=== PATIENT | female | born 1995 | race Hispanic/Latino ===

== ENCOUNTER 2018-02-24 14:09 | Emergency (ER) | payer SELFPAY ==
[2018-02-24 14:28] LABS: Bilirubin Negative (Negative); Blood, Urine Negative (Negative); Clarity CLEAR (Clear); Glucose, Urine (Dipstick) >=1000 mg/dL (Negative); Leukocyte Negative (Negative); Nitrite Negative (Negative); Protein, Urine (Dipstick) Negative (Neg-Trace); Specific Gravity, Urine 1.008 (1.002-1.036); Urobilinogen 0.2 mg/dL (0.2-1.0); pH, Urine 6.5 (5.0-9.0)
[2018-02-24 14:29] LABS: Pregnancy Test - Urine (BHCG) Negative (Negative)
[2018-02-24 14:30] LABS: Pregu Control Background? CLEAR/WHITE (CLR/WHITE); Pregu Control Bar Appear? YES (CONTROL BAR); Specific Gravity 1.008 (1.002-1.036)
[2018-02-24 14:40] LABS: #Basophils 0.1 thou/uL (0.0-0.2); #Eosinphils 0.1 thou/uL (0.0-0.7); #Lymphocytes 3.2 thou/uL (1.20-3.40); #Monocytes 0.6 thou/uL (0.11-0.59); #Neutrophils 4.1 thou/uL (1.40-6.50); %Basophils 0.7 % (0.0-1.0); %Eosinophils 1.1 % (0.0-10.0); %Lymphocytes 39.6 % (21.0-51.0); %Monocytes 7.8 % (0.0-10.0); %Neutrophils 50.8 % (42.0-75.0); Hemoglobin 16.3 g/dL (12.0-16.0); Mean Corpuscular Hemoglobin 29.6 pg (27.0-31.0); Mean Corpuscular Volume 84.6 fL (78.0-98.0); Mean Platelet Volume 7.7 fL (7.4-10.4); Platelet Count 335 thou/uL (130-400); RBC Distribution Width 12.3 % (11.5-14.5); White Blood Cell (WBC) Count 8.1 thou/uL (4.8-10.8)
[2018-02-24 16:31] LABS: ALT (SGPT) 70 U/L (8-55); AST (SGOT) 40 U/L (5-34); Albumin 4.4 g/dL (3.5-5.0); Alkaline Phosphatase 107 U/L (40-150); Anion Gap 14 mmol/L (10-20); BUN (Urea Nitrogen) 7 mg/dL (7.0-18.7); Bilirubin, Total 0.4 mg/dL (0.2-1.2); Calc. Creatinine Clearance 0 mL/min (70-130); Calcium 9.5 mg/dL (7.8-10.44); Carbon Dioxide 25 mmol/L (22-29); Chloride 100 mmol/L (98-107); Estimated GFR-MDRD Greater than 90; Globulin 3.5 g/dL (2.4-3.5); Glucose 289 mg/dL (70-105); Potassium 3.8 mmol/L (3.5-5.1); Protein, Total 7.9 g/dL (6.0-8.3); Sodium 135 mmol/L (136-145)
[2018-02-24] MEDS ORDERED: cefTRIAXone\\ROCEPHIN 250 MG VIAL ONE (17:12)
[2018-02-24] MEDS ORDERED: Lidocaine 1% (PF) 30 ML VIAL ONE (17:13)
[2018-02-25 22:45] LABS: Chlamydia by PCR Not Detected (NotDetected); GC by PCR Not Detected (NotDetected)
== END 2018-02-24 17:40 | disposition home or self-care (01) ==
LOC: ERS 14:09
DX: R10.2 Pelvic and perineal pain (principal); I10 Essential (primary) hypertension; R73.9 Hyperglycemia, unspecified
CPT/HCPCS: 36415; 80053; 81003; 81025; 84702; 85025; 87480; 87491; 87510; 87591; 87660; 96372; J0696; J2001

== ENCOUNTER 2018-06-27 13:42 | Emergency (ER) | payer MEDICAID, SELFPAY ==
[2018-06-27] MEDS ORDERED: Ketorolac Tromethamine 30 MG/ML VIAL ONE (15:17)
[2018-06-27] MEDS ORDERED: Clindamycin/D5W 900 mg/50 ml Premix Bag ONE (15:17)
[2018-06-27 15:55] LABS: #Lymphocytes 2.8 thou/uL (1.20-3.40); #Monocytes 1.1 thou/uL (0.11-0.59); #Neutrophils 15.6 thou/uL (1.40-6.50); %Basophils 0.2 % (0.0-1.0); %Eosinophils 0.1 % (0.0-10.0); %Lymphocytes 14.2 % (21.0-51.0); %Monocytes 5.8 % (0.0-10.0); %Neutrophils 79.7 % (42.0-75.0); Hemoglobin 14.9 g/dL (12.0-16.0); Mean Corpuscular HGB CONC 34.5 g/dL (32.0-36.0); Mean Corpuscular Hemoglobin 28.7 pg (27.0-31.0); Mean Corpuscular Volume 83.1 fL (78.0-98.0); Mean Platelet Volume 8.2 fL (7.4-10.4); Platelet Count 345 thou/uL (130-400); RBC Distribution Width 12.1 % (11.5-14.5); White Blood Cell (WBC) Count 19.6 thou/uL (4.8-10.8)
[2018-06-27 16:21] LABS: ALT (SGPT) 21 U/L (8-55); AST (SGOT) 11 U/L (5-34); Albumin 3.9 g/dL (3.5-5.0); Alkaline Phosphatase 94 U/L (40-150); Anion Gap 15 mmol/L (10-20); BUN (Urea Nitrogen) 5 mg/dL (7.0-18.7); Bilirubin, Total 0.9 mg/dL (0.2-1.2); Calc. Creatinine Clearance 0 mL/min (70-130); Calcium 9.4 mg/dL (7.8-10.44); Carbon Dioxide 23 mmol/L (22-29); Chloride 98 mmol/L (98-107); Estimated GFR-MDRD Greater than 90; Globulin 3.7 g/dL (2.4-3.5); Glucose 234 mg/dL (70-105); Potassium 3.6 mmol/L (3.5-5.1); Protein, Total 7.6 g/dL (6.0-8.3); Sodium 132 mmol/L (136-145)
== END 2018-06-27 19:12 | disposition home or self-care (01) ==
LOC: ERS 13:42
DX: L02.414 Cutaneous abscess of left upper limb (principal)
CPT/HCPCS: 10061; 36415; 80053; 85025; 87040; 96365; 96366; 96367; 96375; J1885; J3370; J3490

== ENCOUNTER 2018-06-29 18:49 | Emergency (ER) | payer SELFPAY ==
[2018-06-29] MEDS ORDERED: Lidocaine 1% w/Epinephrine 1:100K 20 ML VIAL ONE (19:44)
== END 2018-06-29 20:32 | disposition home or self-care (01) ==
LOC: ERS 18:49
DX: L02.412 Cutaneous abscess of left axilla (principal); Z79.899 Other long term (current) drug therapy
CPT/HCPCS: 10061; J2001

== ENCOUNTER 2018-08-17 06:38 | Emergency (ER) | payer SELFPAY ==
[2018-08-17 07:00] LABS: Bilirubin Negative (Negative); Blood, Urine Negative (Negative); Clarity CLEAR (Clear); Glucose, Urine (Dipstick) >=1000 mg/dL (Negative); Leukocyte Negative (Negative); Nitrite Negative (Negative); Protein, Urine (Dipstick) Negative (Neg-Trace); Specific Gravity, Urine 1.031 (1.002-1.036); Urobilinogen 0.2 mg/dL (0.2-1.0)
[2018-08-17 07:05] LABS: Pregnancy Test - Urine (BHCG) POSITIVE (Negative)
[2018-08-17 07:06] LABS: Pregu Control Background? CLEAR/WHITE (CLR/WHITE); Pregu Control Bar Appear? YES (CONTROL BAR); Specific Gravity 1.031 (1.002-1.036)
[2018-08-17 07:42] LABS: #Eosinphils 0.1 thou/uL (0.0-0.7); #Lymphocytes 2.6 thou/uL (1.20-3.40); #Monocytes 0.6 thou/uL (0.11-0.59); #Neutrophils 6.7 thou/uL (1.40-6.50); %Basophils 0.4 % (0.0-1.0); %Eosinophils 1.3 % (0.0-10.0); %Lymphocytes 25.8 % (21.0-51.0); %Monocytes 6.3 % (0.0-10.0); %Neutrophils 66.1 % (42.0-75.0); Hemoglobin 15.1 g/dL (12.0-16.0); Mean Corpuscular HGB CONC 34.7 g/dL (32.0-36.0); Mean Corpuscular Hemoglobin 29.2 pg (27.0-31.0); Mean Corpuscular Volume 84.3 fL (78.0-98.0); Platelet Count 342 thou/uL (130-400); RBC Distribution Width 12.6 % (11.5-14.5); Red Blood Cell (RBC) Count 5.18 mill/uL (4.20-5.40); White Blood Cell (WBC) Count 10.1 thou/uL (4.8-10.8)
[2018-08-17] MEDS ORDERED: Ondansetron ODT 4 MG TAB ONE (09:06)
--- NOTE | 2018-08-17 10:34 | ULT ---
ULTRASOUND PELVIC TRANSVAGINAL: Date: 08/17/18 HISTORY: and vaginal bleeding. COMPARISON: None. FINDINGS: Real-time Cantu scale with color Doppler and spectral analysis of the pelvis was performed via transab dominal and transvaginal approach. The patient's HCG level is 2557. Uterus measures 9.0 x 4.6 x 5.0 c m. Right ovary measures 2.0 x 2.3 x 1.5 cm. Left ovary measures 3.3 x 1.3 x 2.3 cm. Adequate vascular flow to both ovaries. There is what appears to be a gestational sac within the uterine fundus. Possible small pole is appreciated, although there are no heart tones yet appreciated The mean sac diameter is 0.74 cm. IMPRESSION: Intrauterine gestational sac with possible small pole. This may reflect an early intrauterine p regnancy. Close follow-up HCG and ultrasound recommended. POS: [facility]
[2018-08-21 19:14] LABS: Chlamydia by PCR Not Detected (NotDetected); GC by PCR Not Detected (NotDetected)
== END 2018-08-17 10:35 | disposition home or self-care (01) ==
LOC: ERS 06:38
DX: O20.9 Hemorrhage in early pregnancy, unspecified (principal); Z3A.01 Less than 8 weeks gestation of pregnancy
CPT/HCPCS: 36415; 76856; 81003; 81025; 84702; 85025; 86900; 86901; 87086; 87480; 87491; 87510; 87591; 87660; Q0162

== ENCOUNTER 2018-08-22 15:30 | Emergency (ER) | payer SELFPAY ==
[2018-08-22] MEDS ORDERED: HYDROcodone/Acetaminophen 5/325 mg Tablet ONE (16:33)
[2018-08-22 16:45] LABS: #Eosinphils 0.1 thou/uL (0.0-0.7); #Lymphocytes 2.6 thou/uL (1.20-3.40); #Monocytes 0.5 thou/uL (0.11-0.59); #Neutrophils 4.4 thou/uL (1.40-6.50); %Basophils 0.6 % (0.0-1.0); %Eosinophils 0.7 % (0.0-10.0); %Lymphocytes 34.7 % (21.0-51.0); %Monocytes 6.6 % (0.0-10.0); %Neutrophils 57.4 % (42.0-75.0); Hemoglobin 15.1 g/dL (12.0-16.0); Mean Corpuscular HGB CONC 34.6 g/dL (32.0-36.0); Mean Corpuscular Volume 83.8 fL (78.0-98.0); Mean Platelet Volume 7.6 fL (7.4-10.4); Platelet Count 343 thou/uL (130-400); RBC Distribution Width 12.3 % (11.5-14.5); Red Blood Cell (RBC) Count 5.21 mill/uL (4.20-5.40); White Blood Cell (WBC) Count 7.6 thou/uL (4.8-10.8)
--- NOTE | 2018-08-22 19:26 | ULT ---
OB ULTRASOUND 08/22/18 PROVIDED CLINICAL HISTORY: Vaginal bleeding and abdominal pain. FINDINGS: Comparison 08/17/18. Single live intrauterine gestation is documented with a crown-rump length corresponding to a 6 week, 1 day gestation. heart rate of 124 beats per minute is documented. There is no evidence for per igestational hemorrhage. Right and left ovaries appear unremarkable. No evidence for free pelvic flui d. Color doppler and spectral analysis of the ovarian waveforms demonstrate normal flow bilaterally. IMPRESSION: Single live intrauterine gestation, 6 weeks, 1 day by crown-rump length. + POS: [facility]
== END 2018-08-22 19:02 | disposition home or self-care (01) ==
LOC: ERS 15:30
DX: O20.0 Threatened abortion (principal); Z3A.01 Less than 8 weeks gestation of pregnancy
CPT/HCPCS: 36415; 76856; 84702; 85025

== ENCOUNTER 2018-09-18 11:21 | Emergency (ER) | payer OTHER, SELFPAY ==
[2018-09-18 11:57] LABS: Bilirubin Negative (Negative); Blood, Urine Large (Negative); Clarity CLEAR (Clear); Glucose, Urine (Dipstick) >=1000 mg/dL (Negative); Leukocyte Negative (Negative); Nitrite Negative (Negative); Protein, Urine (Dipstick) 100 mg/dL (Neg-Trace); Specific Gravity, Urine 1.035 (1.002-1.036); Urobilinogen 0.2 mg/dL (0.2-1.0); pH, Urine 6.5 (5.0-9.0)
[2018-09-18 12:02] LABS: Bacteria/HPF None Seen HPF (None Seen); Hyaline Casts/LPF 0-3 HYALINE CAST LPF (0-3 Hyaline); Pathc Cast-AUWi Flag 0.87 (0-2.49); Pregnancy Test - Urine (BHCG) Negative (Negative); Pregu Control Bar Appear? YES (CONTROL BAR); Specific Gravity 1.034 (1.002-1.036); WBC/HPF 0-3 HPF (0-3)
[2018-09-18 12:03] LABS: Pregu Control Background? CLEAR/WHITE (CLR/WHITE)
[2018-09-18 12:27] LABS: ALT (SGPT) Less than 35 U/L (8-55)
[2018-09-18 12:58] LABS: Band 1 % (5-11); Lymphocytes 14 % (21-51); MDiff Complete? YES; Mean Corpuscular HGB CONC 32.7 g/dL (32.0-36.0); Mean Corpuscular Hemoglobin 24.5 pg (27.0-31.0); Mean Corpuscular Volume 80.9 fL (78.0-98.0); Mean Platelet Volume 8.5 fL (7.4-10.4); Monocytes 9 % (0-10); Neutrophil 76 % (42-75); Platelet Count 406 thou/uL (130-400); Platelet Morphology Comment Appears Increased; RBC Morphology Normal; Red Blood Cell (RBC) Count 4.93 mill/uL (4.20-5.40)
[2018-09-18] MEDS ORDERED: Promethazine HCl 25 MG/ML VIAL ONE (13:05)
[2018-09-18] MEDS ORDERED: Ondansetron PF 4 MG/2 ML Vial ONE (13:05)
[2018-09-18 13:36] LABS: Sodium 133 mmol/L (136-145)
[2018-09-18 13:41] LABS: Potassium 5.6 mmol/L (3.5-5.1)
[2018-09-18 13:42] LABS: Anion Gap 21 mmol/L (10-20); BUN (Urea Nitrogen) 7 mg/dL (7.0-18.7); Calc. Creatinine Clearance 0 mL/min (70-130); Carbon Dioxide 17 mmol/L (22-29); Chloride 101 mmol/L (98-107); Estimated GFR-MDRD Greater than 90
[2018-09-18 13:43] LABS: Bilirubin, Total 0.5 mg/dL (0.2-1.2); Calcium 7.8 mg/dL (7.8-10.44); Glucose 260 mg/dL (70-105); Protein, Total 8.3 g/dL (6.0-8.3)
[2018-09-18 13:44] LABS: AST (SGOT) 86 U/L (5-34); Alkaline Phosphatase 76 U/L (40-150); Globulin 4.3 g/dL (2.4-3.5)
[2018-09-18 13:45] LABS: Lipase 64 U/L (8-78)
== END 2018-09-18 16:41 | disposition home or self-care (01) ==
LOC: ERS 11:21
DX: B34.9 Viral infection, unspecified (principal)
CPT/HCPCS: 36415; 80053; 81003; 81015; 81025; 83690; 85025; 96365; 96366; 96375; J2405; J2550